=== PATIENT | female | born 1985 | race Caucasian/White ===

== ENCOUNTER 2018-08-09 15:42 | Emergency (ER) | payer MEDICAID, SELFPAY ==
[2018-08-09 16:33] VITALS: BP 142/77; PULSE 85; RESP 18; TEMP 37; O2SAT 98
--- NOTE | 2018-08-09 16:57 | W.ED.GENAD ---
Discharge Plan Disposition Patient Disposition: HOME Discharge Details Chief Complaint: Sorethroat Clinical Impression: Acute pharyngitis Primary Care Provider: Ene,Local ED Provider: Anjel Chiu Discharge Instructions Instructions: Pharyngitis (ED) Additional Instructions: Please drink plenty of fluids to stay hydrated. Use ibuprofen to control pain and inflammation - dose according to label. Rest over the next few days. Follow-up with your doctor as needed for persistent symptoms. Return to the ER for any worsening or new concerning symptoms. Stand Alone Forms: Work Release Medical Decision Making A medical screening exam was performed. 33yo f here with sore throat. Inflammation bilateral tonsils. No signs of deep space infection. Suspect tonsillitis/pharyngitis. Will give ibuprofen and tylenol. Rapaid strep neg. No indication for antibiotic. [place] screen neg. Usual and customary discharge instructions were provided. HPI General Mode of arrival: ambulatory. Date/Time Provider Initiated Documentation: 08/09/18 16:32. Limitations to Documentation: no limitations. Information obtained by: patient. HPI Narrative: 33yo f here with sore throat. Symptoms started 1 week ago. Pain initially on left then spread to right throat. Also pain in bilateral ears. No rash. No fever. 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 Has not tried NSAIDs. General Stated Complaint: Sorethroat BRITTNEY: 4 Review of Systems Constitutional Denies fever(s) ENT Reports as per HPI, Denies hoarseness and Reports sore throat Respiratory Reports cough Gastrointestinal Reports abdominal pain (Some mild sharp intemittent LUQ pain. ) Integumentary/Breasts Denies rash [facility] Social History Smoking/Tobacco Use Status: Current every day Exam Const General: cooperative and no acute distress HENMT Head: normocephalic and atraumatic Ears: external ears normal and TM's normal bilaterally General nose exam: external nose normal Mouth: moist mucous membranes Throat: uvula midline, no peritonsillar masses, posterior oropharynx abnormal edema (bilateral tonsils) and erythema and no uvular edema Other: no trismus Eyes Conjunctivae: normal conjunctivae Sclera: normal sclerae Neck Neck: trachea midline and supple Resp Auscultation: clear to auscultation bilaterally, no rales, no rhonchi and no wheezes Cardio Jugular venous pressure: no JVD Rate: regular rate and not tachycardic Rhythm: regular rhythm GI Palpation: soft, not firm, no guarding, no masses, not rigid and nontender Skin General skin exam: no rashes or lesions noted Neuro General: alert, awake and oriented x3 Course Vital Signs Temperature 37.0 C 08/09/18 16:33 Pulse 85 08/09/18 16:33 Respiratory Rate 18 08/09/18 16:33 Blood Pressure 142/77 H 08/09/18 16:33 Pulse Oximetry 98 08/09/18 16:33 Temperature 37.0 C 08/09/18 16:33 Temperature Source Temporal Artery Scan 08/09/18 16:33 Pulse 85 08/09/18 16:33 Respiratory Rate 18 08/09/18 16:33 Respiratory Effort Non-Labored 08/09/18 16:33 Blood Pressure 142/77 H 08/09/18 16:33 Pulse Oximetry 98 08/09/18 16:33 Oxygen Delivery Method Room Air 08/09/18 16:33 Oxygen Flow Rate 0 08/09/18 16:33 Lab/Test Results Lab/Test Results: 08/09/18 16:54 Pharynx Streptococcus Screen (TAMIKA) - Pending POC Strep Test-ALBERTINA(Rapid) Start: 08/09/18 16:48 Freq: Status: Active Protocol: Document 08/09/18 16:48 KB (Rec: 08/09/18 16:48 KB [email or web address]) Strep test-ALBERTINA(Rapid)-POC POC-Strep test-ALBERTINA (Rapid) Negative POC-Strep test-ALBERTINA (Rapid) Negative
[2018-08-09] MEDS: Acetaminophen 325 MG TAB 650 MG PO (17:00)
[2018-08-09] MEDS: Ibuprofen 600 MG TAB PO (17:00)
--- NOTE | 2018-08-09 17:06 | ED.GENADUL_ITS ---
Discharge Plan Disposition Patient Disposition: HOME Discharge Details Chief Complaint: Sorethroat Clinical Impression: Acute pharyngitis Primary Care Provider: Ene,Local ED Provider: Anjel Chiu Discharge Instructions Instructions: Pharyngitis (ED) Additional Instructions: Please drink plenty of fluids to stay hydrated. Use ibuprofen to control pain and inflammation - dose according to label. Rest over the next few days. Follow-up with your doctor as needed for persistent symptoms. Return to the ER for any worsening or new concerning symptoms. Stand Alone Forms: Work Release Medical Decision Making A medical screening exam was performed. 33yo f here with sore throat. Inflammation bilateral tonsils. No signs of deep space infection. Suspect tonsillitis/pharyngitis. Will give ibuprofen and tylenol. Rapaid strep neg. No indication for antibiotic. [place] screen neg. Usual and customary discharge instructions were provided. HPI General Mode of arrival: ambulatory . Date/Time Provider Initiated Documentation: 08/09/18 16:32 . Limitations to Documentation: no limitations . Information obtained by: patient . HPI Narrative: 33yo f here with sore throat. Symptoms started 1 week ago. Pain initially on left then spread to right throat. Also pain in bilateral ears. No rash. No fever. 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 General Stated Complaint: Sorethroat BRITTNEY: 4 Review of Systems Constitutional Denies fever(s) ENT Reports as per HPI, Denies hoarseness and Reports sore throat Respiratory Reports cough Gastrointestinal Reports abdominal pain (Some mild sharp intemittent LUQ pain. ) Integumentary/Breasts Denies rash [facility] Social History Smoking/Tobacco Use Status: Current every day Exam Const General: cooperative and no acute distress HENMT Head: normocephalic and atraumatic Ears: external ears normal and TM's normal bilaterally General nose exam: external nose normal Mouth: moist mucous membranes Throat: uvula midline, no peritonsillar masses, posterior oropharynx abnormal edema (bilateral tonsils) and erythema and no uvular edema Other: no trismus Eyes Conjunctivae: normal conjunctivae Sclera: normal sclerae Neck Neck: trachea midline and supple Resp Auscultation: clear to auscultation bilaterally, no rales, no rhonchi and no wheezes Cardio Jugular venous pressure: no JVD Rate: regular rate and not tachycardic Rhythm: regular rhythm GI Palpation: soft, not firm, no guarding, no masses, not rigid and nontender Skin General skin exam: no rashes or lesions noted Neuro General: alert, awake and oriented x3 Course Vital Signs Temperature 37.0 C 08/09/18 16:33 Pulse 85 08/09/18 16:33 Respiratory Rate 18 08/09/18 16:33 Blood Pressure 142/77 H 08/09/18 16:33 Pulse Oximetry 98 08/09/18 16:33 Temperature 37.0 C 08/09/18 16:33 Temperature Source Temporal Artery Scan 08/09/18 16:33 Pulse 85 08/09/18 16:33 Respiratory Rate 18 08/09/18 16:33 Respiratory Effort Non-Labored 08/09/18 16:33 Blood Pressure 142/77 H 08/09/18 16:33 Pulse Oximetry 98 08/09/18 16:33 Oxygen Delivery Method Room Air 08/09/18 16:33 Oxygen Flow Rate 0 08/09/18 16:33 Lab/Test Results Lab/Test Results: 08/09/18 16:54 Pharynx Streptococcus Screen (TAMIKA) - Pending POC Strep Test-ALBERTINA(Rapid) Start: 08/09/18 16:48 Freq: Status: Active Protocol: Document 08/09/18 16:48 KB (Rec: 08/09/18 16:48 KB [email or web address]) Strep test-ALBERTINA(Rapid)-POC POC-Strep test-ALBERTINA (Rapid) Negative POC-Strep test-ALBERTINA (Rapid) Negative
[2018-08-09 17:12] LABS: Mono Screening Negative (Negative)
== END 2018-08-09 17:30 | disposition home or self-care (01) ==
PROVIDERS: Emergency Provider Student in an Organized Health Care Education/Training Program
DX: J02.9 Acute pharyngitis, unspecified (principal); F17.210 Nicotine dependence, cigarettes, uncomplicated
CPT/HCPCS: 36415; 87880; 99282; 86308; 87081

== ENCOUNTER 2022-09-26 19:25 | Emergency (ER) | payer MEDICAID, SELFPAY ==
[2022-09-26 19:29] VITALS: BP 143/83; PULSE 65; RESP 18; TEMP 36.4; O2SAT 100
--- NOTE | 2022-09-26 19:45 | DI.RAD_ITS ---
Exam(s) XR CHEST 2V PA LATERAL EXAM: XR CHEST 2V PA LATERAL CLINICAL HISTORY: dyspnea TECHNIQUE: 2D digital imaging was performed. COMPARISON: No exams were available for comparison FINDINGS: HEART: Normal size. Aorta: Not dilated. PULMONARY VASCULATURE: Normal. LUNGS: Clear. PLEURAL SPACE: No pleural effusion or pneumothorax. BONE:Unremarkable for age. IMPRESSION: No acute abnormality. DATA REPOSITORY: RADIATION DOSE DELIVERED:
--- NOTE | 2022-09-26 19:45 | RT.EKG_ITS ---
APPROVED REPORT Exam: Resting ECG Reason for Exam: SOB Patient Location: E HR:72 bpm ECG Measurements Heart Rate [address] 152 P 66 QRSd 99 QRS 68 QT 394 T 53 QTc 432 Conclusion Sinus rhythm...normal P axis, V-rate 60- 99
--- NOTE | 2022-09-26 19:48 | ED.GENADUL_ITS ---
Discharge Plan Disposition Patient Disposition: Home Condition: Stable Discharge Details Chief Complaint: SOB Clinical Impression: Dyspnea Primary Care Provider: Jeff Dixon ED Provider: Taran Gee Discharge Instructions Additional Instructions: Your ultrasound, xray, ekg and blood work did not show concerning findings at this time follow up with your primary care provider within 1 week if you feel more ill, have severe worsening trouble breathing or chest pain return to the emergency department Medical Decision Making 37 yo female with no chronic medical problems who comes in with 2-3 weeks of feeling like she can't get a deep breath in and has been undergoing a lot of stress recently. She denies chest pain/pressure, fevers, chills, abdominal pain, si/hi. She arrives stable speaking in full sentences in no distress though does appear anxious and is tearful duringexam discussing that her son recently was deployed. She has clear lungs, no murmurs, no jvd, no leg swelling or calf tende rness. She has normal appearing ef on bedside pocus without evidence of pericardial effusion. Suspect this is stress related, will check cbc, cmp, ekg/troponin. She is wells low and perc negative so doubt PE. No tearing back pain so doubt dissection pt stable, labs unremarkable, given length of symptoms do not feel delta troponin indicated. Suspect this is anxiety vs stress related but did advised to f/u with her pcp, return precautions given Differential Diagnosis Differential Diagnosis: anxiety, stress, anemia Lab Data Lab results reviewed: Yes I reviewed the patient's lab results. ECG Data Attestation: I personally reviewed and interpreted this ECG (s) as follows: Prior ECG tracings: not available for review Interpretation: sinus rhythm, rate of 72, pr 152, no acute ischemic findings HPI General Mode of arrival: ambulatory . Date/Time Provider Initiated Documentation: 09/26/22 19:25 . Limitations to Documentation: no limitations . Information obtained by: patient . History of Present Illness 37 year old F presents to the emergency department with the chief complaint of feels like she can't get a full breath in, Patient started experiencing this week(s) (3) and it has been intermittent. No relieving factors improve symptom(s), No exacerbating factors reported . Patient notes other (stress/anxiety). Patient did receive the following treatments prior to arrival, none General Stated Complaint: SOB BRITTNEY: 4 Review of Systems All systems reviewed & are unremarkable except as noted in HPI and below Constitutional Constitutional: Denies chills, Denies fever(s) and Denies weakness Cardiovascular Cardiovascular: Denies chest pain Respiratory Respiratory: Denies cough Gastrointestinal Gastrointestinal: Denies abdominal pain, Denies nausea and Denies vomiting Genitourinary Genitourinary: Denies dysuria Musculoskeletal Musculoskeletal: Denies joint swelling Integumentary/Breasts Skin/Breast: Denies rash Neurologic Neurologic: Denies weakness PFSH All Active Problems (Updated 09/26/22 @ 20:59 by Taran Gee MD) Dyspnea (Acute) Social History Smoking/Tobacco Use Status: Current every day Smoking risk assessment performed?: Yes Do you feel safe in your relationship?: Yes Exam Const General: no acute distress and anxious Orientation: alert HENMT Head: normal to inspection Ears: external ears normal General nose exam: external nose normal Mouth: moist mucous membranes Eyes General: appearance normal, both eyes and all related structures Neck Neck: normal visual inspection Resp Effort & Inspection: normal respiratory effort and able to speak in complete sentences Auscultation: clear to auscultation bilaterally Cardio Jugular venous pressure: no JVD Rate: regular rate Heart Sounds: no murmurs Skin General skin exam: no rashes or lesions noted Neuro General: patient alert and patient oriented x3 Extrem General: normal to inspection Psych Mental Status: mental status grossly normal Course Vital Signs Vital signs: Vital Signs Temperature 36.4 C 09/26/22 19:29 Pulse 65 09/26/22 19:29 Respiratory Rate 18 09/26/22 19:29 Blood Pressure 143/83 H 09/26/22 19:29 Pulse Oximetry 100 09/26/22 19:29 Temperature 36.4 C 09/26/22 19:29 Temperature Source Temporal Artery Scan 09/26/22 19:29 Pulse 65 09/26/22 19:29 Respiratory Rate 18 09/26/22 19:29 Blood Pressure 143/83 H 09/26/22 19:29 Blood Pressure Position Sitting 09/26/22 19:29 Pulse Oximetry 100 09/26/22 19:29 Oxygen Delivery Method Room Air 09/26/22 19:29 Oxygen Flow Rate 0 09/26/22 19:29 Pain Level 0 09/26/22 19:29 POCUS Exam (ED) Limited Cardiac Exam DATE OF EXAM: 09/26/22 TIME OF EXAM: 19:54 PROVIDER THAT PERFORMED THE STUDY: Taran Gee IS THIS A REPEAT EXAM DURING THIS ENCOUNTER: no REASON FOR EXAM: Dyspnea VISUALIZED STRUCTURES: Left ventricle and Right ventricle VIEW OBTAINED: Parasternal long-axis and Subxiphoid PERTINENT FINDINGS/IMPRESSION: No apparent abnormalities; No LV dysfunction, No pericardial effusion and No RV dilation Exam complete
[2022-09-26 20:04] VITALS: RESP 20
[2022-09-26 20:08] LABS: Abs Immature Grans 0.02 10^3/uL (0.0-0.06); Absolute Basophil Count 0.04 10^3/uL (0.0-0.2); Absolute Eosinophil Count 0.15 10^3/uL (0.0-0.7); Absolute Lymphocyte Count 3.44 10^3/uL (1.2-3.4); Absolute Monocyte Count 0.73 10^3/uL (0.1-0.8); Absolute Neutrophil Count 4.81 10^3/uL (1.2-6.7); Basophils % 0.4; Eosinophils % 1.6; HCT 40.3 % (36.0-46.0); HGB 13.4 g/dL (11.2-15.7); Immature Grans % 0.2; Lymphocytes % 37.4; MCH 29.3 pg (27.0-33.0); MCHC 33.3 % (32.0-36.0); MCV 88 fL (80-95); MPV 8.5 fL (8.0-11.0); Monocytes % 7.9; Neutrophils % 52.5; Platelet Count 306 10^3/uL (130-400); RBC 4.57 10^6/uL (3.93-5.22); RDW 13.1 % (11.7-14.6); RDW-SD 42.3 fL; WBC 9.19 10^3/uL (4.4-10.8)
[2022-09-26 20:31] LABS: ALT 29 U/L (14-59); AST 13 U/L (15-37); Albumin 4.1 g/dL (3.4-5.0); Alkaline Phosphatase 49 U/L (46-116); Anion Gap 8.3 mmol/L (3-11); BUN 12 mg/dL (7-18); Bilirubin, Total 0.4 mg/dL (0.2-1.0); CO2 27.7 mmol/L (21.0-32.0); CREATININE 0.6 mg/dL (0.55-1.02); Calcium 9.1 mg/dL (8.5-10.1); Chloride 103 mmol/L (98-107); Estimated GFR 117.75 (mL/min/1.73m2); Glucose 94 mg/dL (74-106); Magnesium 2.1 mg/dL (1.8-2.4); Potassium 3.7 mmol/L (3.5-5.1); Sodium 139 mmol/L (136-145); Total Protein 7.8 g/dL (6.4-8.2); Troponin I < 50 ng/L (<or=60)
--- NOTE | 2022-09-26 20:45 | DI.VRAD_ITS ---
PROCEDURE INFORMATION: Exam: XR Chest Exam date and time: 09/26/2022 8:12 PM Age: 37 years old Clinical indication: Other: Dyspnea TECHNIQUE: Imaging protocol: Radiologic exam of the chest. Views: 2 views. COMPARISON: No relevant prior studies available. FINDINGS: Lungs: No pulmonary consolidation is seen. Pleural spaces: No pleural effusion or pneumothorax is demonstrated. Heart/Mediastinum: Heart size is normal. Bones/joints: The visualized bony structures appear grossly intact. IMPRESSION: No active disease is seen in the chest. Dictated and Authenticated by: Torsten Vasquez MD. Ordering:FAN Chirinos MD
== END 2022-09-26 21:17 | disposition home or self-care (01) ==
LOC: ER 21:38
PROVIDERS: Emergency Provider Emergency Medicine; PCP Naturopath
DX: R06.09 Other forms of dyspnea (principal); R06.02 Shortness of breath
CPT/HCPCS: 80053; 93005; 93308; 99284; 99285; 71046; 83735; 84484; 85025; 93010; 99283

== ENCOUNTER 2022-09-30 02:27 | Outpatient (CLI) | payer MEDICAID, SELFPAY ==
[2022-09-30] MEDS: Inhaler, Assist Device 1 EACH MC (09:15)
[2022-09-30] MEDS: Albuterol HFA 18 GM 200 PUFF INH IH (09:15)
--- NOTE | 2022-10-05 13:11 | W.PFT ---
Date of service: 09/30/22 Time of Service: 07:59 Pulmonary Function Test Result Requesting Provider Jeff Dixon Indications: Dyspnea Interpretation Spirometry: There is no airflow limitation. No bronchodilator response. Impression Normal spirometry Clinical Correlation therefore is recommended.
== END 2022-09-30 02:28 | disposition home or self-care (01) ==
LOC: RT 02:27
PROVIDERS: PCP Naturopath; Visit Provider Naturopath
DX: R06.00 Dyspnea, unspecified (principal)
CPT/HCPCS: 94060